=== PATIENT | female | born 1975 | race Caucasian/White ===

== ENCOUNTER 2017-04-26 14:29 | Emergency (ER) | payer OTHER ==
[~2017-04-26] VITALS: Ht 175.2 cm; Wt 82.6 kg
[~2017-04-26 14:29] MED LIST: PARAFON FORTE500 MG PO; Synthroid,Lev125 MCG PO
[2017-04-26] MEDS ORDERED: PREDNISONE10 MG PO (14:53)
== END 2017-04-26 15:05 | disposition home or self-care (01) ==
LOC: ED 14:29
DX: M54.12 Radiculopathy, cervical region (principal); F17.200 Nicotine dependence, unspecified, uncomplicated; Z91.040 Latex allergy status; Z88.0 Allergy status to penicillin; Z88.2 Allergy status to sulfonamides; Z79.899 Other long term (current) drug therapy